=== PATIENT | female | born 1975 | race Caucasian/White ===

== ENCOUNTER → 2017-07-07 | Outpatient (CLI) | payer OTHER ==
--- NOTE | 2017-07-08 12:28 | MG ---
HISTORY: SCREENING Comparison: February 11, 2016 FINDINGS: Bilateral CC and MLO projections of the right and left breast were obtained. Scattered fibroglandul ar tissue is seen to be present. No dominant suspicious architectural distortion, mass or clustered microcalcifications can be observed to suggest malignancy. However, there is asymmetry in the cent ral posterior left breast along the inferior margin of the pectoralis only seen on the MLO view whic h may reflect a skin fold but for which further imaging evaluation is recommended to confirm benign features given the apparent interval change. No skin thickening or nipple retraction is appreciated. No pathological lymphadenopathy can be identified. IMPRESSION: Far posterior left breast asymmetry for which follow up spot compression is recommended . If the findings persist, localization in two views and targeted sonography are recommended. ACR CATEGORY 0 - assessment incomplete; additional imaging recommended. Diagnostic CAD was utilized and reviewed. * 0 (ZERO) - ASSESSMENT INCOMPLETE; ADDITIONAL IMAGING IS NEEDED. * 1/ (ONE) - NEGATIVE. * 2/II (TWO) - BENIGN FINDINGS. * 3/III (THREE) - PROBABLY BENIGN FINDING; SHORT INTERVAL FOLLOW-UP SUGGESTED. * 4/IV (FOUR) - SUSPICIOUS ABNORMALITY; BIOPSY SHOULD BE CONSIDERED. * 5/V (FIVE) - HIGHLY SUSPICIOUS OF MALIGNANCY; BIOPSY SHOULD BE PERFORMED. A NEGATIVE X-RAY REPORT SHOULD NOT DELAY BIOPSY IF A DOMINANT OR CLINICALLY SUSPICIOUS MASS IS PRESENT; 4 TO 8 PERCENT OF CANCERS ARE NOT IDENTIFIED BY X-RAY. A NEG ATIVE REPORT MAY REINFORCE THE CLINICAL IMPRESSION. ADENOSIS AND DENSE BREASTS MAY OBSCURE AN UNDER LYING NEOPLASM. Reported By:
== END ==
LOC: RAD 10:31
PROVIDERS: ATTEND Specialist
DX: Z12.31 Encounter for screening mammogram for malignant neoplasm of breast (principal)
CPT/HCPCS: 77067

== ENCOUNTER → 2017-07-14 | Outpatient (CLI) | payer OTHER ==
--- NOTE | 2017-07-14 15:45 | MG ---
HISTORY: Abnormal screening mammography with left breast asymmetry Left breast digital diagnostic mammography. Comparison: July 07, 2017 and February 11, 2016 FINDINGS: Spot-compression CC, MLO, and mL views of the left breast were obtained. Scattered fibroglandular t issue is seen to be present with the previously described asymmetry dispersing and assuming a simila r appearance as compared to the more remote prior without underlying suspicious mass or architectura l distortion. No skin thickening or nipple retraction is appreciated. No pathological lymphadenop athy can be identified. There are stable benign appearing sub cm nodules in the lateral breast paren chyma. IMPRESSION: NO RADIOGRAPHIC EVIDENCE OF MALIGNANCY. ACR CATEGORY II - benign findings. FOLLOW-UP EXAM 1 YEAR. * 0 (ZERO) - ASSESSMENT INCOMPLETE; ADDITIONAL IMAGING IS NEEDED. * 1/1 (ONE) - NEGATIVE. * 2/II (TWO) - BENIGN FINDINGS. * 3/III (THREE) - PROBABLY BENIGN FINDING; SHORT INTERVAL FOLLOW-UP SUGGESTED. * 4/IV (FOUR) - SUSPICIOUS ABNORMALITY; BIOPSY SHOULD BE CONSIDERED. * 5/V (FIVE) - HIGHLY SUSPICIOUS OF MALIGNANCY; BIOPSY SHOULD BE PERFORMED. A NEGATIVE X-RAY REPORT SHOULD NOT DELAY BIOPSY IF A DOMINANT OR CLINICALLY SUSPICIOUS MASS IS PRESENT; 4 TO 8 PERCENT OF CANCERS ARE NOT IDENTIFIED BY X-RAY. A NEG ATIVE REPORT MAY REINFORCE THE CLINICAL IMPRESSION. ADENOSIS AND DENSE BREASTS MAY OBSCURE AN UNDER LYING NEOPLASM. Reported By:
== END ==
LOC: RAD 14:19
PROVIDERS: ATTEND Specialist
DX: R92.8 Other abnormal and inconclusive findings on diagnostic imaging of breast (principal)
CPT/HCPCS: 77065

== ENCOUNTER 2025-06-10 06:27 | Inpatient (IN) ==
[~2025-06-10 06:27] MED LIST: KETAMINE HCL ONE; PRECEDEX INJ VIAL ONE; SUPRANE IN ONE
[2025-06-10] MEDS: ANCEF VIAL 1 GRAM ONE ×2 (06:40→06:42)
[2025-06-10] MEDS: LR 1,000 ML IV 1,000 ML IV ONE (06:41)
[2025-06-10] MEDS: NS 100 ML IV 100 ML ONE (07:12)
[2025-06-10] MEDS: ANCEF VIAL 1 GRAM IVP ONE (07:13)
[2025-06-10] MEDS: LR 1,000 ML IV 1,000 ML IV SCH (07:14)
[2025-06-10] MEDS: VERSED ONE (07:18)
[2025-06-10] MEDS: FENTANYL VIAL INJ 100 mcg ONE (07:18)
[2025-06-10] MEDS: DIPRIVAN VIAL 20 ML ONE (07:19)
[2025-06-10] MEDS: ZEMURON 100 MG VIAL ONE (07:19)
[2025-06-10] MEDS: BRIDION ONE (07:19)
[2025-06-10] MEDS: ZOFRAN INJ 4 MG VIAL ONE (07:19)
[2025-06-10] MEDS: ANCEF VIAL 1 GRAM IV PRN (07:26)
[2025-06-10] MEDS: PEPCID 20 MG VIAL IVP PRN (07:26)
[2025-06-10] MEDS: LR 1,000 ML IV 0 ML IV PRN (07:26)
[2025-06-10] MEDS: ZOFRAN INJ 4 MG VIAL IVP PRN ×2 (07:26→18:13)
[2025-06-10] MEDS: VERSED IVP PRN (07:26)
[2025-06-10] MEDS: PEPCID 20 MG VIAL ONE (07:26)
[2025-06-10] MEDS: FENTANYL VIAL INJ 100 mcg IVP PRN (07:29)
[2025-06-10] MEDS ORDERED: XYLOCAINE 2 % (PLAIN) PRN (07:29)
[2025-06-10] MEDS: DIPRIVAN VIAL 150 ML IVP PRN (07:30)
[2025-06-10] MEDS: ZEMURON 100 MG VIAL IVP PRN ×2 (07:30→08:39)
[2025-06-10] MEDS: BETADINE SOLN ONE (07:31)
[2025-06-10] MEDS: PRECEDEX INJ VIAL IVP PRN ×2 (07:32→08:52)
[2025-06-10] MEDS: KETAMINE HCL IV PRN ×2 (07:32→08:16)
[2025-06-10] MEDS ORDERED: NS IRRIGATION* 1,000 ML IR ONE (08:00)
[2025-06-10] MEDS ORDERED: NS IRRIGATION* 500 ML IR ONE (08:00)
[2025-06-10] MEDS: OFIRMEV IV 1000 MG VIAL 1,000 MG/100 ML VIAL IV ONE (08:12)
[2025-06-10] MEDS: ProvayBLUE 0.5% ONE (08:15)
[2025-06-10] MEDS: EPHEDRINE SULFATE INJ ONE (08:32)
[2025-06-10] MEDS: EPHEDRINE SULFATE INJ IVP PRN (08:34)
[2025-06-10] MEDS: OFIRMEV IV 1000 MG VIAL 1,000 MG/100 ML VIAL IV PRN (08:51)
[2025-06-10] MEDS ORDERED: DILAUDID INJ ONE (08:55)
[2025-06-10] MEDS ORDERED: REGLAN INJ 10 MG VIAL IVP PRN (08:58)
[2025-06-10] MEDS ORDERED: ZOFRAN INJ 4 MG VIAL IVP PRN (08:58)
[2025-06-10] MEDS ORDERED: BENADRYL INJ 50 MG VIAL IVP PRN ×2 (08:58→09:52)
[2025-06-10] MEDS ORDERED: BARHEMSYS INJ IVP PRN (08:58)
[2025-06-10] MEDS: BRIDION IVP PRN (09:17)
[2025-06-10] MEDS: DILAUDID INJ IVP PRN ×2 (09:26→09:44)
[2025-06-10 09:48] VITALS: BMI 35.4
[2025-06-10] MEDS ORDERED: NARCAN INJ IVP PRN (09:52)
[2025-06-10] MEDS: DILAUDID INJ ONE ×2 (10:31)
[2025-06-10] MEDS: MORPHINE SULFATE PCA 30 MG IVP PRN (10:50)
[2025-06-10] MEDS: D5 1/2 NS 1,000 ML 1,000 ML IV SCH (11:08)
[2025-06-10] MEDS: TORADOL 30 MG VIAL IVP PRN (12:58)
[2025-06-11 05:08] LABS: MEAN PLATELET VOLUME 7.1 fL (7.4-11.0); RED CELL DISTRIBUTION WIDTH 18.1 % (11.6-16.5)
[2025-06-11 05:15] LABS: COR NA(FOR HYPERGLY) 136 mmol/L (136-145); CREATININE 0.63 mg/dL (0.55-1.02); eGFR NON BLACK RACES > 60 (>60)
[2025-06-11] MEDS: D5 1/2 NS + KCL 20 MEQ/L 1,000 ML with MAGNESIUM SULFATE 50% INJ VIAL 1 G IV SCH (07:44)
[2025-06-11] MEDS: PERCOCET TAB 5/325 MG PO PRN (07:49)
[2025-06-11] MEDS: COLACE CAP 100 MG PO SCH (08:27)
[2025-06-11] MEDS: ZESTORETIC 20/25 MG PO SCH (08:27)
[2025-06-11] MEDS: ESTRACE PO SCH (08:27)
[2025-06-11] MEDS ORDERED: K-DUR TAB 20 MEQ PO SCH (09:00)
[2025-06-11] MEDS: MOTRIN TAB 800 MG PO PRN (12:06)
[2025-06-11] MEDS: BACTROBAN TOPICAL OINT TOP SCH (14:12)
[2025-06-11] MEDS: ULTRAM PO PRN (15:02)
[2025-06-11] MEDS: CONSULT PHARMACY - POTASSIUM & MAGNESIUM XX SCH (19:31)
[2025-06-11] MEDS: CLARITIN PO SCH (21:04)
[2025-06-12 05:36] LABS: MEAN PLATELET VOLUME 6.7 fL (7.4-11.0); RED CELL DISTRIBUTION WIDTH 18.1 % (11.6-16.5)
[2025-06-12 05:45] LABS: COR NA(FOR HYPERGLY) 139 mmol/L (136-145); CREATININE 0.74 mg/dL (0.55-1.02); eGFR NON BLACK RACES > 60 (>60)
[2025-06-12 08:17] VITALS: RESP 20
[2025-06-12] MEDS: K-DUR TAB 20 MEQ PO SCH (08:17)
[2025-06-12 08:40] VITALS: BP 159/75; PULSE 85; TEMP 98.2; O2SAT 97
== END 2025-06-12 10:00 | disposition home or self-care (01) | DRG 743 ==
LOC: OBS 06:27 → MED/SURG 07:25
PROVIDERS: ADMIT Specialist; ATTEND Specialist
DX: E87.6 Hypokalemia; R10.2 Pelvic and perineal pain; N83.291 Other ovarian cyst, right side; N83.292 Other ovarian cyst, left side